=== PATIENT | male | born 1975 | race Two or more races ===

== ENCOUNTER 2022-05-15 07:46 | Observation (INO) | payer OTHER ==
[2022-05-15 07:52] VITALS: RESP 18
[2022-05-15 08:42] LABS: BASO % 0.9 % (0-2.0); EOS % 0.7 % (0-4.5); HEMATOCRIT 46.1 % (35.4-49); HEMOGLOBIN 15.9 GM/dL (11.7-16.9); LYMPH % 15.4 % (8-40); MCH 32.3 pg (25.7-33.7); MCHC 34.5 g/dl (32.0-35.9); MEAN CELL VOLUME 93.6 fl (80-96); MEAN PLT VOLUME 8.6 fl (7.5-11.1); MONO % 3.6 % (3.8-10.2); NEUT % 79.4 % (42.8-82.8); PLATELET COUNT 205 10^3/uL (134-434); RBC 4.93 M/mm3 (4.00-5.60); RDW 12.1 % (11.9-15.9)
[2022-05-15 08:50] LABS: INR 1.03 (0.83-1.09); PROTHROMBIN TIME (PATIENT) 11.8 SEC (9.7-13.0)
[2022-05-15 08:53] LABS: ACTIVATED PTT 24.5 SECONDS (25.2-36.5)
[2022-05-15] MEDS ORDERED: ACETAMINOPHEN 1000 MG/100 ML BAG IVPB ONE (08:54)
[2022-05-15] MEDS ORDERED: ACETAMINOPHEN INJECTION 100 ML IVPB ONE (08:59)
[2022-05-15 09:02] LABS: CHLORIDE 103 mmol/L (98-107); SODIUM 138 mmol/L (136-145)
[2022-05-15 09:04] LABS: BLOOD UREA NITROGEN 22.8 mg/dL (7-18); CALCIUM 8.9 mg/dL (8.5-10.1)
[2022-05-15 09:05] LABS: ANION GAP 8 MMOL/L (8-16); CO2 27 mmol/L (21-32); GLUCOSE,RANDOM 123 mg/dL (74-106)
[2022-05-15 09:07] LABS: SGPT/ALT 25 U/L (13-61)
[2022-05-15 09:08] LABS: CREATININE 1.2 mg/dL (0.55-1.3); SGOT/AST 18 U/L (15-37)
[2022-05-15 09:09] LABS: BILIRUBIN,TOTAL 0.5 mg/dL (0.2-1); TOT PROT 7.8 g/dl (6.4-8.2)
[2022-05-15 09:10] LABS: ALK PHOS 79 U/L (45-117)
[2022-05-15] MEDS: ENOXAPARIN NA (PORCINE) 40 MG/0.4 ML DISP.SYRIN SQ SCH (15:00)
[2022-05-16 02:20] VITALS: BMI 22.3
[2022-05-16 09:03] LABS: BASO % 0.7 % (0-2.0); EOS % 0.7 % (0-4.5); HEMATOCRIT 47.4 % (35.4-49); HEMOGLOBIN 16.7 GM/dL (11.7-16.9); LYMPH % 24.1 % (8-40); MCH 33.3 pg (25.7-33.7); MCHC 35.3 g/dl (32.0-35.9); MEAN CELL VOLUME 94.3 fl (80-96); MONO % 6.4 % (3.8-10.2); NEUT % 68.1 % (42.8-82.8); PLATELET COUNT 198 10^3/uL (134-434); RBC 5.02 M/mm3 (4.00-5.60); RDW 12.2 % (11.9-15.9); WHITE BLOOD COUNT 7.9 K/mm3 (4.0-10.0)
[2022-05-16 09:40] LABS: CALCIUM 9.7 mg/dL (8.5-10.1)
[2022-05-16 09:41] LABS: BLOOD UREA NITROGEN 16.5 mg/dL (7-18); MAGNESIUM 2.5 mg/dL (1.8-2.4)
[2022-05-16 09:44] LABS: CREATININE 1.2 mg/dL (0.55-1.3); PHOSPHOROUS 2.5 mg/dL (2.5-4.9)
[2022-05-16] MEDS: ENOXAPARIN NA (PORCINE) 40 MG/0.4 ML DISP.SYRIN SQ SCH (10:09)
[2022-05-16 10:30] VITALS: BP 124/70; PULSE 80; TEMP 97.9
== END 2022-05-16 13:42 | disposition home or self-care (01) ==
LOC: JER 07:46 → JERBED 11:13 → J7W 20:30
PROVIDERS: ADMIT Internal Medicine; ATTEND Nurse Practitioner Family
PROC: 3E033NZ Introduction of Analgesics, Hypnotics, Sedatives into Peripheral Vein, Percutaneous Approach (ICD-10-PCS; principal; 2022-05-15)
DX: S06.0X1A Concussion with loss of consciousness of 30 minutes or less, initial encounter (principal); V18.0XXA Pedal cycle driver injured in noncollision transport accident in nontraffic accident, initial encounter; Y93.89 Activity, other specified; Y92.482 Bike path as the place of occurrence of the external cause; U07.1 COVID-19
CPT/HCPCS: 36415; 70450-TC; 70486-TC; 71045-TC-FY; 72125-TC; 76604; 76705-TC; 80048; 80053; 80307; 82728; 83615; 83735; 84100; 84443; 85025; 85610; 85730; 86850; 86900; 86901; 93308; 96374; 99285-25; C9803-CS; G0378; U0003; U0005